=== PATIENT | female | born 1950 | race Asian ===

== ENCOUNTER 2016-08-01 14:01 | Observation (INO) | payer BC, MEDICARE, OTHER ==
--- NOTE | 2016-08-01 14:16 | ER Document Report ---
ED Medical Screen (RME) - General Stated Complaint: BLURRED VISSION Mode of Arrival: Wheelchair Information source: Patient Notes: Patient reports episode of blurred vision that started few hours ago while she was at work. Patient reports not feeling well. Patient denies any pain. Patient is feeling off balance. No motor deficits. hx: Recent dental extraction I have greeted and performed a rapid initial assessment of this patient. A comprehensive ED assessment and evaluation of the patient, analysis of test results and completion of the medical decision making process will be conducted by additional ED providers. - Related Data Allergies/Adverse Reactions: No Known Allergies Allergy (Verified 08/01/16 14:11) Physical Exam - Neurological Cognition: Normal [place] Coma Scale Eye Opening: Spontaneous [place] Coma Scale Verbal: Oriented [place] Coma Scale Motor: Obeys Commands [place] Coma Scale Total: 15 Course - Re-evaluation Re-evalutation: 08/01/16 14:[address] Hassan who advises stroke evaluation
[2016-08-01 15:17] LABS: ABSOLUTE LYMPHOCYTES (AUTO) 1.2 10^3/uL (0.5-4.7); ABSOLUTE MONOCYTES (AUTO) 0.4 10^3/uL (0.1-1.4); ABSOLUTE NEUT (AUTO) 5.4 10^3/uL (1.7-8.2); BASOPHILS % (AUTO) 0.3 % (0-2); EOSINOPHILS % (AUTO) 0.5 % (0-6); HEMATOCRIT 43.8 % (36.0-47.0); HEMOGLOBIN 14.8 g/dL (12.0-15.5); HGB HCT DIFFERENCE 0.6; LYMPHOCYTES % (AUTO) 17.3 % (13-45); MEAN CORPUSCULAR HGB CONC 33.9 g/dL (32.0-36.0); MEAN CORPUSCULAR VOLUME 95 fl (80-97); MONOCYTES % (AUTO) 5.4 % (3-13); RED BLOOD COUNT 4.64 10^6/uL (3.72-5.28); RED CELL DISTRIBUTION WIDTH 12.8 % (11.5-14.0); SEGMENTED NEUTROPHILS % (AUTO) 76.5 % (42-78)
[2016-08-01 15:30] LABS: APPEARANCE,URINE CLEAR; BILIRUBIN,URINE NEGATIVE (NEGATIVE); GLUCOSE, URINE NEGATIVE (NEGATIVE); KETONES,URINE NEGATIVE (NEGATIVE); LEUKOCYTE ESTERASE,URINE NEGATIVE (NEGATIVE); NITRITE,URINE NEGATIVE (NEGATIVE); PROTEIN,URINE NEGATIVE (NEGATIVE); URINE SPECIFIC GRAVITY 1.005; UROBILINOGEN,URINE NEGATIVE mg/dL (<2.0)
[2016-08-01 15:31] LABS: PROTHROMBIN TIME 12.7 SEC (11.4-15.4)
[2016-08-01 15:32] LABS: PARTIAL THROMBOPLASTIN TIME 29.2 SEC (23.5-35.8)
[2016-08-01 15:37] LABS: ALANINE AMINOTRANSFERASE 27 U/L (9-52); ALBUMIN 4.1 g/dL (3.5-5.0); ALKALINE PHOSPHATASE 118 U/L (38-126); ANION GAP 10 (5-19); ASPARTATE AMINO TRANSFERASE 23 U/L (14-36); BILIRUBIN,TOTAL 0.4 mg/dL (0.2-1.3); BLOOD UREA NITROGEN 16 mg/dL (7-20); CARBON DIOXIDE 27 mmol/L (22-30); CHLORIDE 106 mmol/L (98-107); CREATINE KINASE 144 U/L (30-135); CREATININE RESULT 0.78 mg/dL (0.52-1.25); GLUCOSE 115 mg/dL (75-110); POTASSIUM 3.9 mmol/L (3.6-5.0); SODIUM 142.5 mmol/L (137-145); TOTAL PROTEIN 7.8 g/dL (6.3-8.2)
[2016-08-01 15:49] LABS: CREATINE KINASE MB 1.74 ng/mL (<4.55); TROPONIN I < 0.012 ng/mL
--- NOTE | 2016-08-01 16:04 | ER Document Report ---
[id number] 4d BLURRED VISSION Mode of Arrival: Wheelchair Notes: The patient is a 66-year-old female, unknown past medical history bc she has not seen a doctor in several years, presents with ataxia and blurry vision that began at 7 AM this morning. She has had this in the past and it resolved spontaneously. She said the symptoms are making her feel like she is about to fall and she feels like the room is spinning. She denies numbness, tingling, neck stiffness, fevers, focal weakness, pain, shortness of breath, back pain, head injury or blood thinner use. TRAVEL OUTSIDE OF THE [place] IN LAST 30 DAYS: No - Related Data Allergies/Adverse Reactions: No Known Allergies Allergy (Verified 08/01/16 14:11) Past Medical History - General Information source: Patient - Social History Smoking Status: Unknown if Ever Smoked Chew tobacco use (# tins/day): No Frequency of alcohol use: None Drug Abuse: None Family History: Reviewed & Not Pertinent Patient has suicidal ideation: No Patient has homicidal ideation: No Renal/ Medical History: Denies: Hx Peritoneal Dialysis Review of Systems - Review of Systems Notes: REVIEW OF SYSTEMS: CONSTITUTIONAL: -fevers, -chills EENT: +blurry vision, -eye pain, -difficulty swallowing, -nasal congestion CARDIOVASCULAR:-chest pain, -syncope. RESPIRATORY: -cough, -SOB GASTROINTESTINAL: -abdominal pain, - nausea, -vomiting, -diarrhea GENITOURINARY: -dysuria, -hematuria MUSCULOSKELETAL: -back pain, -neck pain SKIN: -rash or skin lesions. HEMATOLOGIC: -easy bruising or bleeding. LYMPHATIC: -swollen, enlarged glands. NEUROLOGICAL: +ataxia, +dizziness, -altered mental status or loss of consciousness, -headache PSYCHIATRIC: -anxiety, -depression. ALL OTHER SYSTEMS REVIEWED AND NEGATIVE. Physical Exam - Vital signs Vitals: Temp Pulse Resp BP Pulse Ox 97.5 F 84 14 180/74 H 97 08/01/16 14:09 08/01/16 14:09 08/01/16 14:09 08/01/16 14:09 08/01/16 14:09 - Notes Notes: PHYSICAL EXAMINATION: GENERAL: Well-appearing, well-nourished and in no acute distress. HEAD: Atraumatic, normocephalic. EYES: Pupils equal round and reactive to light, extraocular movements intact, sclera anicteric, conjunctiva are normal. ENT: No nystagmus. nares patent, oropharynx clear without exudates. Moist mucous membranes. NECK: Normal range of motion, supple without lymphadenopathy LUNGS: Breath sounds clear to auscultation bilaterally and equal. No wheezes rales or rhonchi. HEART: Regular rate and rhythm without murmurs ABDOMEN: Soft, nontender, normoactive bowel sounds. No guarding, no rebound. No masses appreciated. EXTREMITIES: Normal range of motion, no pitting or edema. No cyanosis. NEUROLOGICAL: +Romberg's test, left-sided past-pointing, Cranial nerves grossly intact. Normal speech. Normal sensory, motor, and reflex exams. PSYCH: Normal mood, normal affect. SKIN: Warm, Dry, normal turgor, no rashes or lesions noted. Course - Re-evaluation Re-evalutation: Symptoms may be related to BPPV, but she does have several posterior cerebellar symptoms, including ataxia, positive Romberg's test, past pointing and abnormal eye skew deviation. Patient is not a TPA candidate due to 7 hours of symptoms. ABCD2 score 4. CT head does not show any acute bleeds and labs are unremarkable. Blood pressure 180/80, which is most likely long-standing due to not seeing a doctor for several years. Patient requires admission for further evaluation and treatment. ASA given. 08/01/16 16:[address] Morrison and he has accepted the patient. - Vital Signs Vital signs: Temp Pulse Resp BP Pulse Ox 97.5 F 92 18 187/89 H 97 08/01/16 14:09 08/01/16 15:15 08/01/16 15:15 08/01/16 15:15 08/01/16 15:31 - Laboratory Result Diagrams: 08/01/16 14:56 08/01/16 14:56 Laboratory results interpreted by me: 08/01/16 14:56 Glucose 115 H Creatine Kinase 144 H - Diagnostic Test Radiology reviewed: Image reviewed, Reports reviewed Radiology results interpreted by me: CT Head: NAD. Critical Care Note - Critical Care Note Total time excluding time spent on procedures (mins): 35 ED [employer]/Exc Criteria - Date/Time patient last known well: Date/Time: 08/01/2016 07:00 - Inclusion Criteria: 1: Patient presented to ED within 3 hours of acute ischemic stroke symptom onset ? -: No 2: Did baseline CT exclude intracranial hemorrhage and/or other risk factors? -: Yes 3: Is the age of the patient 18 years of age or greater? -: Yes : If any of the above questions are answered "NO" then stop, patient is not a candidate for Alteplase, : If all of the above questions are answered "YES" then continue with Exclusion Criteria. - Exclusion Criteria: 1: Is there evidence of intracranial hemorrhage on baseline CT? 2: Is there suspicion of subarachnoid hemorrhage (even if CT negative)? 3: Is there a history of serious head trauma, recent previous stroke or SD within 3 months? 4: Does the patient have a clinical presentation consistent with SD or post-SD pericarditis? 5: Is there history of intracranial hemorrhage? 6: On repeated measurement is Systolic BP greater than 185mmHg or Diastolic BP greater that 110 mmHg and is aggressive treatment needed to reduce blood pressure to these limits (e.g. constant infusion of an anti-hypertensive)? 7: Did the patient awake with stroke symptoms? 8: Has the patient had a lumbar puncture or an arterial puncture at a non- compressile site within 7 days? 9: With in the last 14 days did the patient have surgery or major trauma? 10: Is the patient or less than 2 weeks? 11: Was there any active bleeding or acute trauma? 12: Does the patient have intracranial neoplasm, arteriovenous malformation or aneurysm? 13: Does the patient have abnormal glucose (less than 50 or greater than 400mg/ dl)? Record glucose in Comment. 14: Patient has rapidly improving symptoms at the time Alteplase is to be Administered. 15: Does the patient have any risks for bleeding, including but not limited to: a.: Current use of Coumadin with PT greater than 15 seconds or INR greater than 1.7. b.: Current use of Pradaxa (Dabigatran). c.: Heparin administereed within the past 48 hours and PTT elevated. d.: Platelet count less than 100,000/mm. e.: Major surgery or serious trauma within 14 days. f.: Gastrointestinal or gynecological urinary bleeding within 14 days. g.: Myocardial Infarction (SD) within 3 months. : If the answer to any of the above questions is "YES" then stop, the patient is not a candidate for Alteplase. : If the answer to all of the above questions is "NO" then the patient may be eligible for the Administration of Alteplase. : If the patient is noted to have seizure activity at onset of Stroke symptoms; Consult Neurologist for further evaluation. - The patient is: -: Included and is eligible to receive Alteplase. *Initiate bed placement at higher level of care* Reviewd risks & benefits of thrombolytic therapy: I have reviewed the risks and benefits of thrombolytic therapy with the patient and/or his/her family. -: Excluded and not eligible to receive Alteplase for the above exclusions. -: Excluded and not eligible to receive Alteplase for other reasons (specify in comments): - Diagnosis of TIA: -: Patient presented with transient symptoms that are now resolved and no other neurologic findings are currently present. List symptoms in comments. -: Patient is NOT a candidate for tPA. -: ____(put name in comment) has been consulted for admission and continued evaluation of risk factor assessment. ED NIH Stroke Scale - NIH Stroke Scale When completed:: Before Alteplase *: 1. NIH scale should be completed with appropriate accompanying assessment tools. *: 2. The NIH should reflect what the patient is capable of doing and should not be coached by the clinician. 1a. Level of Consciousness: 0=Alert;keenly responsive -: 1=Drowsy -: 2=Obtunded -: 3=Coma/unresponsive or reflex to noxious stimuli. 1a. Responses: 0 1b. Orientation Questions: a. What month is it? -: b. How old are you? -: 0=Answers both questions correctly. -: 1=Answers one question correctly or patient is intubated or has orotracheal trauma. -: 2=Answers neither question correctly. 1b. Responses: 0 1c. Response to commands: a. Open and close eyes? -: b. [place] Drier and release hand? -: Credit is given despite weakness. Demonstration of task is permitted. Substitute command if hands cannot be used. -: 0=Performs both tasks correctly -: 1=Performs one task correctly -: 2=Performs neither task correctly 1c. Responses: 0 2. Gaze: Establish eye contact and instruct patient to "Follow my finger" -: 0=Normal -: 1=Partial gaze palsy. Gaze is abnormal in one or both eyes, but where forced deviation or total gaze paresis is not present. -: 2=Forced deviation or total gaze paresis. 2. Responses: 0 3. Visual [place]: Sees fingers in all four quadrants. -: 0=No visual loss. -: 1=Partial hemianopsia. -: 2=Complete hemianopsia. -: 3=Bilateral hemianopsia (including Cortical blindness) 3. Responses: 0 4. Facial Movement: Instruct patient to: -: a. Show me your teeth -: b. Raise your eyebrows -: c. Close your eyes -: d. Smile -: 0=Normal symmetrical movement -: 1=Minor paralysis (flattened nasolabial fold, asymmetry on smiling). -: 2=Partial paralysis (total or near total paralysis of lower face). -: 3=Complete paralysis of upper and lower face 4. Responses: 0 5. Motor functions (left arm): Alternate sides and extend each arm with palms down (90 degrees if sitting or 45 degrees for supine). -: 0=No drift;limb holds for full 10 seconds. -: 1=Drift; limb holds but drifts down before full 10 seconds, but does not hit bed. -: 2=Some effort against gravity; limb cannot get to or maintain position. -: 3=No effort against gravity; limb falls. -: 4=No movement. -: UN=Amputation, joint fusion, explain in comments. 5. Responses (left arm): 0 5. Motor Functions (right arm): Alternate sides and extend each arm with palms down (90 degrees if sitting or 45 degrees for supine). -: 0=No drift;limb holds for full 10 seconds. -: 1=Drift; limb holds but drifts down before full 10 seconds, but does not hit bed. -: 2=Some effort against gravity; limb cannot get to or maintain position. -: 3=No effort against gravity; limb falls. -: 4=No movement. -: UN=Amputation, joint fusion, explain in comments. 5. Responses (right arm): 0 6. Motor Functions (left leg): With patient lying supine, alternate sides and extend each leg (30 degrees always while supine). -: 0=No drift, leg holds position for full 5 seconds -: 1=Drift; leg falls before full 5 seconds but does not hit bed. -: 2=Some effort against gravity, leg falls to bed but some effort against gravity. -: 3=No effort against gravity, leg falls to bed immediately. -: 4=No movement. -: UN=Amputation, joint fusion; explain in comments. 6. Responses (left leg): 0 6. Motor Functions (right leg): With patient lying supine, alternate sides and extend each leg (30 degrees always while supine). -: 0=No drift, leg holds position for full 5 seconds -: 1=Drift; leg falls before full 5 seconds but does not hit bed. -: 2=Some effort against gravity, leg falls to bed but some effort against gravity. -: 3=No effort against gravity, leg falls to bed immediately. -: 4=No movement. -: UN=Amputation, joint fusion; explain in comments. 6. Responses (right leg): 0 7. Limb Ataxia: With eyes open instruct patient to: -: a. "Touch your finger to your nose". -: b. "Touch your heel to your floyd" -: 0=Absent -: 1=Present in one limb. -: 2=Present in two limbs. -: UN=Amputation or joint fusion; explain in comments. 7. Responses: 1 7. If ataxia present choose as appropriate: Left arm, Left leg, Right leg 8. Sensory: Test sensation using pinprick or noxious stimuli. Test as many body parts as possible. -: 0=Normal;no sensory loss -: 1=Mile to moderate sensory loss (patient feels pin prick but is less sharp on affected side). -: 2=Severe or total sensory loss. 8. Responses: 0 9. Best Language: Instruct patient to: -: a. "Describe what you see in this picture." -: b. "Name the items in this picture." -: c. "Read these sentences." -: 0=No aphasia, normal -: 1=Mild to moderate aphasia. -: 2=Severe aphasia -: 3=[place], global aphasia, no usable speech or auditory comprehension. 9. Responses: 0 10. Articulation, Dysarthia: Instruct patient to: -: "Read these words" or "Repeat these words" -: 0=Normal -: 1=Mild to moderate; patient may slur some words but can be understood without difficulty. -: 2=Severe; patients speech so slurred as to be unintelligible in the absence of dysphasia. -: UN=Intubated or other physical barrier, explain in comments. 10. Responses: 0 11. Extinction or inattention: 0=No abnormality -: 1= Visual, tactile, auditory, spatial, or personal inattention or extinction to bilateral simulation in one or the sensory modalities. -: 2=Profound tyrese-inattention or tyrese-inattention to more than one modality; does not recognize own hand. 11. Responses: 0 Total Score: 1 Discharge - Discharge Clinical Impression: Ataxia Condition: Stable Disposition: ADMITTED INPATIENT Admitting Provider: Hospitalist - [facility] Admitted: Medical Floor
[2016-08-01] MEDS ORDERED: ASPIRIN 325 MG TABLET PO ONE (16:06)
[2016-08-01] MEDS ORDERED: MECLIZINE HCL 25 MG TABLET PO ONE (16:08)
[2016-08-01] MEDS ORDERED: ACETAMINOPHEN 325 MG TABLET PO PRN (16:47)
--- NOTE | 2016-08-01 17:15 | PDOC H&P ---
History of Present Illness History of Present Illness: CROW HOLGUIN is a 66 year old female who presents with vertigo. The patient reports that over the last 6 months she's had episodes of feeling dizzy when she stands up quickly or turns her head. This morning at 7 AM when she was at work she started having worsening vertigo and some blurred vision. She also felt very tremulous. Patient presented emergency room and there were concerned this may represent a TIA. The patient has not had any loss of vision but has had blurred vision. She denies any double vision. She denies any loss of consciousness. She denies any focal weakness. Denies any paresthesias or numbness in her arms or legs. She denies any dysarthria or dysphagia. Past Medical History Cardiac Medical History: Reports: None Pulmonary Medical History: Reports: None EENT Medical History: Reports: None Neurological Medical History: Reports: None Endocrine Medical History: Reports: None Renal/ Medical History: Reports: None Malignancy Medical History: Reports: None GI Medical History: Reports: None Musculoskeltal Medical History: Reports: None Skin Medical History: Reports: None Traumatic Medical History: Reports: None Hematology: Reports: None Infectious Medical History: Reports: None Past Surgical History Past Surgical History: Reports: None Social History Information Source: Patient Lives with: Family Smoking Status: Never Smoker Frequency of Alcohol Use: Occasional Hx Recreational Drug Use: No Drugs: None - Advance Directive Resuscitation Status: Full Code Family History Family History: Mother in her 70s from unknown health history. Father in his 50s from unknown causes. They were in [place] and patient was here when they . Parental Family History Reviewed: Yes Children Family History Reviewed: No Sibling(s) Family History Reviewed.: No Medication/Allergy Allergies/Adverse Reactions: No Known Allergies Allergy (Verified 08/01/16 14:11) Review of Systems Constitutional: ABSENT: chills, fever(s), headache(s), weight gain, weight loss Eyes: ABSENT: visual disturbances Ears: ABSENT: hearing changes Cardiovascular: ABSENT: chest pain, dyspnea on exertion, edema, orthropnea, palpitations Respiratory: ABSENT: cough, hemoptysis Gastrointestinal: ABSENT: abdominal pain, constipation, diarrhea, hematemesis, hematochezia, nausea, vomiting Genitourinary: ABSENT: dysuria, hematuria Musculoskeletal: ABSENT: joint swelling Integumentary: PRESENT: as per HPI Neurological: PRESENT: as per HPI Psychiatric: ABSENT: anxiety, depression Endocrine: ABSENT: cold intolerance, heat intolerance, polydipsia, polyuria Physical Exam Vital Signs: Temp Pulse Resp BP Pulse Ox 97.5 F 92 14 152/90 H 98 08/01/16 14:09 08/01/16 15:15 08/01/16 16:14 08/01/16 16:14 08/01/16 16:14 Intake & Output 07/31/16 08/01/16 08/02/16 06:59 06:59 06:59 Weight 61.235 kg General appearance: PRESENT: no acute distress, well-developed, well-nourished Head exam: PRESENT: atraumatic, normocephalic Eye exam: PRESENT: conjunctiva pink, EOMI, PERRLA. ABSENT: scleral icterus Ear exam: PRESENT: normal external ear exam Mouth exam: PRESENT: moist, tongue midline Neck exam: ABSENT: carotid bruit, JVD, lymphadenopathy, thyromegaly Respiratory exam: PRESENT: clear to auscultation marva. ABSENT: rales, rhonchi, wheezes Cardiovascular exam: PRESENT: RRR. ABSENT: diastolic murmur, rubs, systolic murmur GI/Abdominal exam: PRESENT: normal bowel sounds, soft. ABSENT: distended, guarding, mass, organolmegaly, rebound, tenderness Rectal exam: PRESENT: deferred Extremities exam: PRESENT: full ROM. ABSENT: calf tenderness, clubbing, pedal edema Neurological exam: PRESENT: alert, awake, oriented to person, oriented to place , oriented to time, oriented to situation, other - Patient has some nystagmus with lateral gaze bilaterally. Psychiatric exam: PRESENT: anxious Skin exam: PRESENT: dry, intact, warm. ABSENT: cyanosis, rash Results Laboratory Results: 08/01/16 14:56 08/01/16 14:56 08/01/16 08/01/16 08/01/16 14:56 14:56 14:56 WBC 7.0 RBC 4.64 Hgb 14.8 Hct 43.8 MCV 95 MCH 32.0 MCHC 33.9 RDW 12.8 Plt Count 207 Seg Neutrophils % 76.5 Lymphocytes % 17.3 Monocytes % 5.4 Eosinophils % 0.5 Basophils % 0.3 Absolute Neutrophils 5.4 Absolute Lymphocytes 1.2 Absolute Monocytes 0.4 Absolute Eosinophils 0.0 Absolute Basophils 0.0 Sodium 142.5 Potassium 3.9 Chloride 106 Carbon Dioxide 27 Anion Gap 10 BUN 16 Creatinine 0.78 Est GFR ( Amer) > 60 Est GFR (Non-Af Amer) > 60 Glucose 115 H Calcium 10.0 Total Bilirubin 0.4 AST 23 ALT 27 Alkaline Phosphatase 118 Total Protein 7.8 Albumin 4.1 Urine Color STRAW Urine Appearance CLEAR Urine pH 6.0 Ur Specific [place] 1.005 Urine Protein NEGATIVE Urine Glucose (UA) NEGATIVE Urine Ketones NEGATIVE Urine Blood NEGATIVE Urine Nitrite NEGATIVE Ur Leukocyte Esterase NEGATIVE Urine WBC (Auto) 0 08/01/16 08/01/16 14:56 14:56 Creatine Kinase 144 H CK-MB (CK-2) 1.74 Troponin I < 0.012 Impressions: Chest X-Ray 08/01/16 14:11 IMPRESSION: NO ACUTE RADIOGRAPHIC FINDING IN THE CHEST. Head CT 08/01/16 14:15 IMPRESSION: NORMAL BRAIN CT WITHOUT CONTRAST. Assessment & Plan - Diagnosis (1) Ataxia Is this a current diagnosis for this admission?: YesPlan: The patient has ataxia and there was concern this may represent a TIA. The patient has however had symptoms for the last 6 months with intermittent vertigo with rapid head problems. I suspect this most likely represents a labyrinthitis. Patient also was very anxious which is contributing to her symptoms. Will give Valium 5 mg 3 times a day and we'll go ahead and obtain an MRI and MRA of her head and neck to rule out any type of posterior circulation problems. Patient will be given an aspirin daily. - Time Time Spent: 50 to 70 Minutes - Plan Summary Plan Summary: Patient is made an observation admission as I anticipate his require less than a 2 midnight hospital stay.
[2016-08-01] MEDS ORDERED: DIAZEPAM 5 MG TABLET PO ONE (17:30)
--- NOTE | 2016-08-01 18:38 | EKG REPORT ---
SEVERITY:- NORMAL ECG - SINUS RHYTHM : Confirmed by: Alba Hernandez 01-Aug-2016 18:37:48
[2016-08-01] MEDS ORDERED: ATORVASTATIN CALCIUM 20 MG TABLET PO SCH (22:00)
[2016-08-01] MEDS: FAMOTIDINE 20 MG TABLET PO SCH (22:05)
[2016-08-01] MEDS: DIAZEPAM 5 MG TABLET PO SCH (22:06)
[2016-08-02] MEDS: DIAZEPAM 5 MG TABLET PO SCH (05:14)
[2016-08-02 07:17] LABS: CHOLESTEROL 189.51 mg/dL (0-200); Direct HDL 79 mg/dL (>40); TRIGLYCERIDES 74 mg/dL (<150)
[2016-08-02 07:28] LABS: DIRECT LDL 91 mg/dL (<100)
[2016-08-02] MEDS ORDERED: SERTRALINE HCL 50 MG TABLET PO SCH (10:00)
[2016-08-02] MEDS ORDERED: ASPIRIN 325 MG TABLET, ENT COATED PO SCH (10:00)
[2016-08-02] MEDS: FAMOTIDINE 20 MG TABLET PO SCH (11:24)
[2016-08-02 13:40] VITALS: BP 125/66
--- NOTE | 2016-08-02 17:14 | PDOC DISCHARGE SUMMARY ---
General - Admit/Disc Date/PCP Admission Date/Primary Care Provider: 08/01/16 16:47 Discharge Date: 08/02/16 - Discharge Diagnosis (1) Ataxia Is this a current diagnosis for this admission?: YesSummary: [place] to be most likely secondary to vestibulitis. Patient also has anxiety - Additional Information Resuscitation Status: Full Code Discharge Diet: Regular Discharge Activity: Activity As Tolerated, Balance Activity w/Rest Home Medications: Aspirin [Ecotrin 325 mg EC Tablet] 325 mg PO DAILY tabec 08/02/16 Diazepam [Valium 5 mg Tablet] 5 mg PO Q8 PRN #30 tablet 08/02/16 Sertraline HCl [Zoloft 50 mg Tablet] 50 mg PO DAILY #30 tablet 08/02/16 History of Present Illness History of Present Illness: CROW HOLGUIN is a 66 year old female who presents with vertigo. The patient reports that over the last 6 months she's had episodes of feeling dizzy when she stands up quickly or turns her head. This morning at 7 AM when she was at work she started having worsening vertigo and some blurred vision. She also felt very tremulous. Patient presented emergency room and there were concerned this may represent a TIA. The patient has not had any loss of vision but has had blurred vision. She denies any double vision. She denies any loss of consciousness. She denies any focal weakness. Denies any paresthesias or numbness in her arms or legs. She denies any dysarthria or dysphagia. Hospital Course Hospital Course: The patient was admitted with ataxia which was felt to most likely represent a vestibulitis. Patient had an MRI which was unremarkable and carotid Dopplers which were also normal. Patient was started on Valium 5 mg 3 times a day and she had complete resolution of her symptoms reported she felt dramatically better. Patient did admit then that she has been very anxious over the last 6 months. She is started on Zoloft. Physical Exam Vital Signs: Temp Pulse Resp BP Pulse Ox 97.3 F 70 17 125/66 97 08/02/16 15:11 08/02/16 15:11 08/02/16 15:11 08/02/16 15:11 08/02/16 15:11 Intake & Output 08/01/16 08/02/16 08/03/16 06:59 06:59 06:59 Intake Total 3 480 Balance 3 480 Weight 54.6 kg General appearance: PRESENT: no acute distress Eye exam: PRESENT: conjunctiva pink. ABSENT: scleral icterus Mouth exam: PRESENT: moist, tongue midline Neck exam: ABSENT: carotid bruit, JVD, lymphadenopathy, thyromegaly Respiratory exam: PRESENT: clear to auscultation marva. ABSENT: rales, rhonchi, wheezes Cardiovascular exam: PRESENT: RRR. ABSENT: diastolic murmur, rubs, systolic murmur GI/Abdominal exam: PRESENT: normal bowel sounds, soft. ABSENT: distended, guarding, mass, organolmegaly, rebound, tenderness Extremities exam: PRESENT: full ROM. ABSENT: calf tenderness, clubbing, pedal edema Neurological exam: PRESENT: alert, awake, oriented to person, oriented to place , oriented to time, oriented to situation, CN II-XII grossly intact. ABSENT: motor sensory deficit Psychiatric exam: PRESENT: appropriate affect Skin exam: PRESENT: dry, intact, warm. ABSENT: cyanosis, rash Results Laboratory Results: 08/02/16 06:37 Triglycerides 74 Cholesterol 189.51 LDL Cholesterol Direct 91 VLDL Cholesterol 15.0 HDL Cholesterol 79 Impressions: Chest X-Ray 08/01/16 14:11 IMPRESSION: NO ACUTE RADIOGRAPHIC FINDING IN THE CHEST. Head CT 08/01/16 14:15 IMPRESSION: NORMAL BRAIN CT WITHOUT CONTRAST. Head MRI 08/01/16 17:27 IMPRESSION: NORMAL MRI OF THE BRAIN WITHOUT INTRAVENOUS GADOLINIUM CONTRAST. Carotid Doppler Study 08/02/16 00:00 IMPRESSION: NO HEMODYNAMICALLY SIGNIFICANT STENOSIS. Qualifiers PATEINT BEING DISCHARGED WITH ANY OF THE FOLLOWING DIAGNOSIS?: No Plan Discharge Plan: Patient is discharged home and will follow up with primary care in the next 2 weeks. Time Spent: Less than 30 Minutes
== END 2016-08-02 15:55 | disposition home or self-care (01) ==
LOC: ER 14:01 → EH 16:47 → 3S 22:33
PROVIDERS: ADMIT Internal Medicine; ATTEND Internal Medicine
DX: R27.0 Ataxia, unspecified (principal); R42 Dizziness and giddiness
CPT/HCPCS: 93005; 99291; 36415 ×2; 82553; 82550; 85025; 85610; 85730; 80053; 81001; 84484; 80061; 93880; 70551; 71010; 70450; 93010; G0378 ×3; J3490 ×2

== ENCOUNTER 2016-08-21 17:40 | Emergency (ER) | payer BC, MEDICARE, OTHER ==
--- NOTE | 2016-08-21 18:07 | ER Document Report ---
ED Medical Screen (RME) - General Stated Complaint: WEAK Mode of Arrival: Wheelchair Information source: Patient, Relative - SON Notes: Patient presents to the emergency department with complaints of feeling weak trimmers violently shaking no strength can stand or walk. Patient reports she is incoherent at times. 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 Son reports patient was here 2 weeks ago with the same symptoms. She was diagnosed with vertigo and was prescribed Valium. Patient quit taking time because she said it didn't help her and because it knocked her out. Reports recent CT and MRI was normal. I have greeted and performed a rapid initial assessment of this patient. A comprehensive ED assessment and evaluation of the patient, analysis of test results and completion of the medical decision making process will be conducted by additional ED providers. TRAVEL OUTSIDE OF THE [place] IN LAST 30 DAYS: No - Related Data Allergies/Adverse Reactions: No Known Allergies Allergy (Verified 08/01/16 14:11) Past Medical History Renal/ Medical History: Denies: Hx Peritoneal Dialysis Physical Exam - Vital signs Vitals: Temp Pulse Resp BP Pulse Ox 98.2 F 84 14 143/74 H 96 08/21/16 17:51 08/21/16 17:51 08/21/16 17:51 08/21/16 17:51 08/21/16 17:51 Course - Vital Signs Vital signs: Temp Pulse Resp BP Pulse Ox 98.2 F 84 14 143/74 H 96 08/21/16 17:51 08/21/16 17:51 08/21/16 17:51 08/21/16 17:51 08/21/16 17:51
[2016-08-21 18:34] LABS: ABSOLUTE EOSINOPHILS # (AUTO) 0.1 10^3/uL (0.0-0.6); ABSOLUTE MONOCYTES (AUTO) 0.5 10^3/uL (0.1-1.4); ABSOLUTE NEUT (AUTO) 4.7 10^3/uL (1.7-8.2); APPEARANCE,URINE CLEAR; BASOPHILS % (AUTO) 0.5 % (0-2); BILIRUBIN,URINE NEGATIVE (NEGATIVE); EOSINOPHILS % (AUTO) 0.8 % (0-6); GLUCOSE, URINE NEGATIVE (NEGATIVE); HEMATOCRIT 41.9 % (36.0-47.0); HEMOGLOBIN 14.3 g/dL (12.0-15.5); KETONES,URINE NEGATIVE (NEGATIVE); LEUKOCYTE ESTERASE,URINE NEGATIVE (NEGATIVE); LYMPHOCYTES % (AUTO) 27.1 % (13-45); MEAN CORPUSCULAR HGB CONC 34.3 g/dL (32.0-36.0); MEAN CORPUSCULAR VOLUME 93 fl (80-97); MONOCYTES % (AUTO) 6.9 % (3-13); NITRITE,URINE NEGATIVE (NEGATIVE); PROTEIN,URINE NEGATIVE (NEGATIVE); RED BLOOD COUNT 4.49 10^6/uL (3.72-5.28); RED CELL DISTRIBUTION WIDTH 12.4 % (11.5-14.0); SEGMENTED NEUTROPHILS % (AUTO) 64.7 % (42-78); URINE SPECIFIC GRAVITY 1.004; UROBILINOGEN,URINE NEGATIVE mg/dL (<2.0); WHITE BLOOD COUNT 7.3 10^3/uL (4.0-10.5)
[2016-08-21 18:50] LABS: ALANINE AMINOTRANSFERASE 31 U/L (9-52); ALBUMIN 4.5 g/dL (3.5-5.0); ALKALINE PHOSPHATASE 102 U/L (38-126); ANION GAP 12 (5-19); ASPARTATE AMINO TRANSFERASE 25 U/L (14-36); BILIRUBIN,TOTAL 0.6 mg/dL (0.2-1.3); BLOOD UREA NITROGEN 11 mg/dL (7-20); CALCIUM 9.7 mg/dL (8.4-10.2); CARBON DIOXIDE 27 mmol/L (22-30); CHLORIDE 106 mmol/L (98-107); GLUCOSE 116 mg/dL (75-110); POTASSIUM 3.9 mmol/L (3.6-5.0); SODIUM 144.5 mmol/L (137-145); TOTAL PROTEIN 7.7 g/dL (6.3-8.2)
--- NOTE | 2016-08-21 22:40 | ER Document Report ---
ED General - General Chief Complaint: Weakness Stated Complaint: WEAK Mode of Arrival: Wheelchair Notes: Patient is a 66-year-old female presents to the ER because of complaints of feeling very weak, shaking, having difficulty walking. Patient was recently discharged hospital May 26 after having similar symptoms. They thought this is related to vertigo and anxiety. She is placed on Zoloft as well as Valium. She's been taking his medications but says her symptoms have continued to gradually worsen. At that time she had stroke up including MRI and carotid Dopplers. No recent fevers or infections. No other complaints at this time. She denies recent trauma or injuries. The symptoms have been ongoing for over 6 months. She has not followed up with her primary care doctor. She says when she called the office she was told that they are not taking new patients. TRAVEL OUTSIDE OF THE [place] IN LAST 30 DAYS: No - Related Data Allergies/Adverse Reactions: No Known Allergies Allergy (Verified 08/01/16 14:11) Past Medical History - General Information source: Patient, Relative - SON - Social History Smoking Status: Never Smoker Frequency of alcohol use: None Drug Abuse: None Family History: Reviewed & Not Pertinent Renal/ Medical History: Denies: Hx Peritoneal Dialysis Review of Systems - Review of Systems Notes: My Normal Review Basic REVIEW OF SYSTEMS: CONSTITUTIONAL : Denies fever, chills, or sweats. Denies recent illness. EENT: Denies eye, ear, throat, or mouth pain or symptoms. Denies nasal or sinus congestion. CARDIOVASCULAR: Denies chest pain. RESPIRATORY: Denies cough, cold, or chest congestion. Denies shortness of breath, difficulty breathing, or wheezing. GASTROINTESTINAL: Denies abdominal pain. Denies nausea, vomiting, or diarrhea. Denies constipation. Last BM: GENITOURINARY: Denies difficulty urinating, painful urination, burning, frequency, or blood in urine. MUSCULOSKELETAL: Denies neck or back pain or joint pain or swelling. SKIN: Denies rash or skin lesions. NEUROLOGICAL: Difficulty ambulating. Weakness. PSYCHIATRIC: Denies anxiety or stress or depression. ALL OTHER SYSTEMS REVIEWED AND NEGATIVE. Physical Exam - Vital signs Vitals: Temp Pulse Resp BP Pulse Ox 98.2 F 84 14 143/74 H 96 08/21/16 17:51 08/21/16 17:51 08/21/16 17:51 08/21/16 17:51 08/21/16 17:51 - Notes Notes: General Appearance: Well nourished, alert, cooperative, no acute distress, no obvious discomfort. Vitals: reviewed, See vital signs table. Head: no swelling or tenderness to the head Eyes: PERRL, EOMI, Conjuctiva clear Mouth: No decreasd moisture Neck: Supple, no neck tenderness, No thyromegaly Lungs: No wheezing, No rales, No rhonci, No accessory muscle use, good air exchange bilaterally. Heart: Normal rate, Regular rythm, No murmur, no rub Abdomen: Normal BS, soft, No rigidity, No abdominal tenderness, No guarding, no rebound, no abdominal masses, no organomegaly Extremities: strength 5/5 in all extremities, good pulses in all extremities, no swelling or tenderness in the extremities, no edema. Skin: warm, dry, appropriate color, no rash Neuro: speech clear, oriented x 3, normal affect, responds appropriately to questions. Patient moves all 4 extremities on her own. No focal weakness. Patient does have some tremor when she stands up. She is able to walk, but seems hesitant to do so because she starts having a tremor when she stands to walk. Cranial nerves II through XII are intact. Course - Vital Signs Vital signs: Temp Pulse Resp BP Pulse Ox 98.0 F 68 18 135/67 H 96 08/22/16 02:34 08/22/16 02:34 08/22/16 02:34 08/22/16 02:34 08/22/16 02:34 - Laboratory Result Diagrams: 08/21/16 18:15 08/21/16 18:15 Laboratory results interpreted by me: 08/21/16 08/21/16 08/21/16 18:15 18:15 18:15 Glucose 116 H Creatine Kinase 178 H Salicylates < 1.0 L Acetaminophen < 10 L - EKG Interpretation by Me Additional EKG results interpreted by me: 08/21/16 22:57 EKG is reviewed and interpreted by me. EKG shows normal sinus rhythm with rate of [address] segment elevation or depression. No ischemic T wave inversions. NV interval, QRS duration, QTC intervals are within normal range. Old EKG for comparison is from 08/01/2016. - Transfer of Care Notes: 08/22/16 06:01 After all patient's results are back the son was in the room. The son was very helpful. I explained to him and his mother that I do not know what is causing her symptoms. The patient does seem very anxious and her symptoms to be consistent with anxiety however I informed them I cannot be completely sure that that is what is causing her symptoms. She has no true focal neurologic deficits. She's had an MRI recently. Should recent CT scan which was also negative. I did check a B-12 level and magnesium level. These are all negative. The remainder of her blood work is completely negative. I did talk to her and her son. I did offer admission being that I'm unclear the exact cause of what is going on. At this time they declined admission. They prefer outpatient referral to neurologist. I will give them referral to Dr. Lincoln. Encouraged him to return to ER if there is any worsening of her symptoms or she feels unwell. Dictation of this chart was performed using voice recognition software; therefore, there may be some unintended grammatical errors. 08/22/16 06:41 Discharge - Discharge Clinical Impression: Weakness, Dizziness Condition: Good Disposition: HOME, SELF-CARE Additional Instructions: Please stop taking the Valium and Zoloft. Please follow-up with Dr. Lincoln, neurologist, for further workup of your symptoms. Please return to the ER if you have any further concerns or feel worse. Please take the meclizine as needed up to 3 times a day for dizziness. Prescriptions: Meclizine HCl 25 mg PO TID PRN #20 tab.chew PRN Reason: dizziness Forms: Return to Work Referrals: DOLORES LINCOLN MD [ACTIVE STAFF] - Follow up in 3-5 days
[2016-08-21 22:50] LABS: MAGNESIUM 2.3 mg/dL (1.6-2.3)
[2016-08-21 23:18] LABS: TROPONIN I < 0.012 ng/mL
[2016-08-22 00:21] LABS: URINE BARBITURATES SCREEN NEGATIVE; URINE METHADONE SCREEN NEGATIVE; URINE OPIATES LOW NEGATIVE; URINE PHENCYCLIDINE SCREEN NEGATIVE
[2016-08-22 02:35] VITALS: BP 135/67
--- NOTE | 2016-08-22 10:51 | EKG REPORT ---
SEVERITY:- NORMAL ECG - SINUS RHYTHM : Confirmed by: Alba Hernandez 22-Aug-2016 10:50:23
== END 2016-08-22 02:33 | disposition home or self-care (01) ==
LOC: ER 17:40
DX: R53.1 Weakness (principal); R42 Dizziness and giddiness; R26.2 Difficulty in walking, not elsewhere classified; R25.1 Tremor, unspecified; Z79.899 Other long term (current) drug therapy
CPT/HCPCS: 36415; 80053; 80307; 81001; 82550; 82553; 82607; 82962; 83735; 84443; 84484; 85025; 93005; 93010; 99285

== ENCOUNTER 2017-08-13 09:05 | Emergency (ER) | payer BC, MEDICARE, OTHER ==
[2017-08-13 10:06] LABS: APPEARANCE,URINE CLEAR; BILIRUBIN,URINE NEGATIVE (NEGATIVE); COLOR,URINE STRAW; GLUCOSE, URINE NEGATIVE (NEGATIVE); KETONES,URINE NEGATIVE (NEGATIVE); LEUKOCYTE ESTERASE,URINE NEGATIVE (NEGATIVE); NITRITE,URINE NEGATIVE (NEGATIVE); PROTEIN,URINE NEGATIVE (NEGATIVE); URINE SPECIFIC GRAVITY 1.004; UROBILINOGEN,URINE NEGATIVE mg/dL (<2.0)
[2017-08-13 10:37] LABS: ABSOLUTE LYMPHOCYTES (AUTO) 1.3 10^3/uL (0.5-4.7); ABSOLUTE MONOCYTES (AUTO) 0.3 10^3/uL (0.1-1.4); ABSOLUTE NEUT (AUTO) 3.9 10^3/uL (1.7-8.2); BASOPHILS % (AUTO) 0.7 % (0-2); EOSINOPHILS % (AUTO) 0.7 % (0-6); HEMATOCRIT 43.3 % (36.0-47.0); HEMOGLOBIN 14.5 g/dL (12.0-15.5); MEAN CORPUSCULAR HEMOGLOBIN 31.5 pg (27.0-33.4); MEAN CORPUSCULAR HGB CONC 33.4 g/dL (32.0-36.0); MEAN CORPUSCULAR VOLUME 94 fl (80-97); MONOCYTES % (AUTO) 5.3 % (3-13); PLATELET COUNT 185 10^3/uL (150-450); RED BLOOD COUNT 4.59 10^6/uL (3.72-5.28); RED CELL DISTRIBUTION WIDTH 13.1 % (11.5-14.0); SEGMENTED NEUTROPHILS % (AUTO) 70.3 % (42-78); TOTAL CELLS COUNTED % (AUTO) 100 %; WHITE BLOOD COUNT 5.5 10^3/uL (4.0-10.5)
[2017-08-13 10:57] LABS: ALANINE AMINOTRANSFERASE 26 U/L (9-52); ALBUMIN 4.5 g/dL (3.5-5.0); ALKALINE PHOSPHATASE 86 U/L (38-126); ANION GAP 8 (5-19); ASPARTATE AMINO TRANSFERASE 20 U/L (14-36); BILIRUBIN,DIRECT 0.1 mg/dL (0.0-0.4); BILIRUBIN,TOTAL 0.4 mg/dL (0.2-1.3); BLOOD UREA NITROGEN 16 mg/dL (7-20); CALCIUM 9.7 mg/dL (8.4-10.2); CARBON DIOXIDE 29 mmol/L (22-30); CHLORIDE 106 mmol/L (98-107); GLUCOSE 98 mg/dL (75-110); SODIUM 143.1 mmol/L (137-145); TOTAL PROTEIN 7.2 g/dL (6.3-8.2)
[2017-08-13] MEDS ORDERED: LORAZEPAM INJ 2 MG/1 ML VIAL IV ONE (11:48)
[2017-08-13 12:29] LABS: CREATINE KINASE 83 U/L (30-135)
--- NOTE | 2017-08-13 14:18 | ER Document Report ---
ED General - General Chief Complaint: Tremor Stated Complaint: BLURRED VISION Time Seen by Provider: 08/13/17 09:42 Information source: Patient TRAVEL OUTSIDE OF THE [place] IN LAST 30 DAYS: No - HPI Patient complains to provider of: tremors/blurred vision Onset: Just prior to arrival Onset/Duration: Gradual Quality of pain: No pain Associated symptoms: Weakness - generalized Exacerbated by: Denies Relieved by: Denies Similar symptoms previously: Yes - 08/21/16 Recently seen / treated by doctor: No Notes: Patient states she went to work this morning. Her boss noticed that she was tremorous. She states she also felt weak all over. She was sent here for evaluation. Patient states that she had the same thing a year ago and it has gradually worsened. She states that she does take fluoxetine to baby aspirin a day. She states she does not smoke or drink. She does have a history of anxiety. 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 She states she did eat oatmeal and coffee this morning as she always does. States she had the same symptoms that started a year ago. She states she has had them on and off throughout the year however she does state that they are worsening. She has seen a neurologist and had a full workup. She states they have not found any reason for this. She states she does not wish to go back to her neurologist any longer. - Related Data Allergies/Adverse Reactions: No Known Allergies Allergy (Verified 08/13/17 09:06) Past Medical History - General Information source: Patient - Social History Smoking Status: Never Smoker Chew tobacco use (# tins/day): No Frequency of alcohol use: None Drug Abuse: None Lives with: Family Family History: Reviewed & Not Pertinent Patient has suicidal ideation: No Patient has homicidal ideation: Yes - Past Medical History Cardiac Medical History: Reports: None Pulmonary Medical History: Reports: None EENT Medical History: Reports: Eyes - Patient states she had blurry vision earlier but it resolved Neurological Medical History: Reports: None Endocrine Medical History: Reports: None Renal/ Medical History: Reports: None. Denies: Hx Peritoneal Dialysis Malignancy Medical History: Reports: None GI Medical History: Reports: None Musculoskeltal Medical History: Reports None Psychiatric Medical History: Reports: None Traumatic Medical History: Reports: None Infectious Medical History: Reports: None Past Surgical History: Reports: None Review of Systems - Review of Systems Constitutional: Weakness EENT: Blurred vision Cardiovascular: No symptoms reported Respiratory: No symptoms reported Gastrointestinal: No symptoms reported Genitourinary: No symptoms reported Female Genitourinary: No symptoms reported Musculoskeletal: No symptoms reported Skin: No symptoms reported Hematologic/Lymphatic: No symptoms reported Neurological/Psychological: See HPI Physical Exam - Vital signs Vitals: Temp Pulse Resp BP Pulse Ox 97.9 F 72 16 140/71 H 95 08/13/17 09:10 08/13/17 09:10 08/13/17 09:10 08/13/17 09:10 08/13/17 09:10 - Notes Notes: PHYSICAL EXAMINATION: GENERAL: Well-appearing, well-nourished and in no acute distress. Ears anxious. HEAD: Atraumatic, normocephalic. EYES: Pupils equal round and reactive to light, extraocular movements intact, conjunctiva are normal. No nystagmus. No scleral icterus. ENT: Nares patent, oropharynx clear without exudates. Moist mucous membranes. NECK: Normal range of motion, supple without lymphadenopathy LUNGS: Breath sounds clear to auscultation bilaterally and equal. No wheezes rales or rhonchi. HEART: Regular rate and rhythm without murmurs ABDOMEN: Soft, nontender, nondistended abdomen. No guarding, no rebound. No masses appreciated. Female : deferred Musculoskeletal: Normal range of motion, no pitting or edema. No cyanosis. Does have resting tremor bilateral upper extremities. NEUROLOGICAL: Cranial nerves grossly intact. Normal speech. Normal sensory. Patient demonstrates bilateral upper extremity weakness however when I moved her pocketbook away from her to went to fall she quickly grabbed it with both hands and pulled it towards her. Reflexes WNL upper and lower extremities. PSYCH: Normal mood, normal affect. SKIN: Warm, Dry, normal turgor, no rashes or lesions noted. - HEENT Visual acuity- Right eye: 20/40 Visual acuity- Left eye: 20/40 Visual acuity- Both eyes: 20/30 Corrective lenses worn: No - No other issues with test. PCt [place] Course - Re-evaluation Re-evalutation: 08/13/17 14:[address] scan head-now agreeable. She states she had neurology consult for same symptoms but nothing was discovered as the cause and she does not wish to see that neurologist again. i encouraged her and her friend who was present, to find another neurologist for follow up. 08/13/17 14:18 Labs- All tests 24 hr 08/13/17 08/13/17 08/13/17 09:40 10:23 10:23 WBC 5.5 RBC 4.59 Hgb 14.5 Hct 43.3 MCV 94 MCH 31.5 MCHC 33.4 RDW 13.1 Plt Count 185 Seg Neutrophils % 70.3 Lymphocytes % 23.0 Monocytes % 5.3 Eosinophils % 0.7 Basophils % 0.7 Absolute Neutrophils 3.9 Absolute Lymphocytes 1.3 Absolute Monocytes 0.3 Absolute Eosinophils 0.0 Absolute Basophils 0.0 Sodium 143.1 Potassium 4.0 Chloride 106 Carbon Dioxide 29 Anion Gap 8 BUN 16 Creatinine 0.72 Est GFR ( Amer) > 60 Est GFR (Non-Af Amer) > 60 Glucose 98 Calcium 9.7 Magnesium Total Bilirubin 0.4 Direct Bilirubin 0.1 Neonat Total Bilirubin Not Reportable Neonat Direct Bilirubin Not Reportable Neonat Indirect Bili Not Reportable AST 20 ALT 26 Alkaline Phosphatase 86 Creatine Kinase Total Protein 7.2 Albumin 4.5 TSH Urine Color STRAW Urine Appearance CLEAR Urine pH 8.0 Ur Specific [place] 1.004 Urine Protein NEGATIVE Urine Glucose (UA) NEGATIVE Urine Ketones NEGATIVE Urine Blood NEGATIVE Urine Nitrite NEGATIVE Urine Bilirubin NEGATIVE Urine Urobilinogen NEGATIVE Ur Leukocyte Esterase NEGATIVE Urine WBC (Auto) 0 Urine Bacteria (Auto) TRACE Squamous Epi Cells Auto <1 Urine Mucus (Auto) RARE Urine Ascorbic Acid NEGATIVE 08/13/17 08/13/17 10:23 10:23 WBC RBC Hgb Hct MCV MCH MCHC RDW Plt Count Seg Neutrophils % Lymphocytes % Monocytes % Eosinophils % Basophils % Absolute Neutrophils Absolute Lymphocytes Absolute Monocytes Absolute Eosinophils Absolute Basophils Sodium Potassium Chloride Carbon Dioxide Anion Gap BUN Creatinine Est GFR ( Amer) Est GFR (Non-Af Amer) Glucose Calcium Magnesium 2.3 Total Bilirubin Direct Bilirubin Neonat Total Bilirubin Neonat Direct Bilirubin Neonat Indirect Bili AST ALT Alkaline Phosphatase Creatine Kinase 83 Total Protein Albumin TSH 0.50 Urine Color Urine Appearance Urine pH Ur Specific [place] Urine Protein Urine Glucose (UA) Urine Ketones Urine Blood Urine Nitrite Urine Bilirubin Urine Urobilinogen Ur Leukocyte Esterase Urine WBC (Auto) Urine Bacteria (Auto) Squamous Epi Cells Auto Urine Mucus (Auto) Urine Ascorbic Acid 08/13/17 15:[address] 08/13/17 14:18 IMPRESSION: NORMAL BRAIN CT WITHOUT CONTRAST. EVIDENCE OF ACUTE STROKE: NO. - Vital Signs Vital signs: Temp Pulse Resp BP Pulse Ox 97.9 F 72 16 140/71 H 95 08/13/17 09:10 08/13/17 09:10 08/13/17 09:10 08/13/17 09:10 08/13/17 09:10 - Laboratory Result Diagrams: 08/13/17 10:23 08/13/17 10:23 Discharge - Discharge Clinical Impression: Occasional tremors Condition: Stable Disposition: HOME, SELF-CARE Instructions: Weakness ([facility], [facility]) Additional Instructions: Follow up with your physician tomorrow for further care or return to the ED IMMEDIATELY if symptoms worsen or new concerns occur. If you cannot afford to follow up with your primary care physician a list of low cost clinics have been provided at the end of your discharge papers as well. Referrals: NADEEN GRECO PA-C [Primary Care Provider] - Follow up tomorrow (Call office in a.m. for follow-up in the next few days.) CASSANDRA MAGALLANES MD [[facility]] - Follow up as needed RINA JOSEPH, GENERATOR TECHNICIAN [ALLIED HEALTH PROFESSIONAL] - Follow up as needed DOLORES LINCOLN MD [NO LOCAL MD] - Follow up as needed
--- NOTE | 2017-08-13 15:39 | RADIOLOGY REPORT (SQ) ---
EXAM DESCRIPTION: CT HEAD WITHOUT COMPLETED DATE/TIME: 08/13/2017 3:32 pm REASON FOR STUDY: weakness COMPARISON: None. TECHNIQUE: Axial images acquired through the brain without intravenous contrast. Images reviewed wi th bone, brain and subdural windows. Images stored on PACS. All CT scanners at this facility use dose modulation, iterative reconstruction, and/or weight based d osing when appropriate to reduce radiation dose to as low as reasonably achievable (ALARA). [facility]: Dose Right [facility]: CareDose [facility]: Dose Right [facility]: Teradose 4D [facility]: Bouncefootball RADIATION DOSE: CT Rad equipment meets quality standard of care and radiation dose reduction techniq ues were employed. CTDIvol: 49.0 mGy. DLP: 881 mGy-cm. mGy. LIMITATIONS: None. FINDINGS: VENTRICLES: Normal size and contour. CEREBRUM: No masses. No hemorrhage. No midline shift. No evidence for acute infarction. Normal gra y/white matter differentiation. No areas of low density in the white matter. CEREBELLUM: No masses. No hemorrhage. No alteration of density. No evidence for acute infarction. EXTRAAXIAL SPACES: No fluid collections. No masses. ORBITS AND GLOBE: No intra- or extraconal masses. Normal contour of globe without masses. CALVARIUM: No fracture. PARANASAL SINUSES: No fluid or mucosal thickening. SOFT TISSUES: No mass or hematoma. OTHER: No other significant finding. IMPRESSION: NORMAL BRAIN CT WITHOUT CONTRAST. EVIDENCE OF ACUTE STROKE: NO. COMMENT: Quality ID # [id number]: Final reports with documentation of one or more dose reduction techniques (e.g., Automated exposure control, adjustment of the mA and/or kV according to patient size, use of iterative reconstruction technique) TECHNICAL DOCUMENTATION: JOB ID: [id number] [employer]- All Rights Reserved Reading location - IP/workstation name: [email or web address]
[2017-08-13 16:45] VITALS: BP 145/72
== END 2017-08-13 16:44 | disposition home or self-care (01) ==
LOC: ER 09:05
DX: G25.2 Other specified forms of tremor (principal); H53.8 Other visual disturbances; R53.1 Weakness
CPT/HCPCS: 99284; 96374; 36415; 82550; 83735; 84443; 85025; 80053; 81001; 70450; J2060

== ENCOUNTER 2020-01-29 14:05 | Emergency (ER) | payer BC, MEDICARE, OTHER ==
[2020-01-29 14:21] VITALS: BP 121/67
[2020-01-29] MEDS ORDERED: DIPH/PERTUSS(ACELL)/TETANUS VAC/PF 0.5 ML SYR (>=10YO) IM ONE (15:13)
[2020-01-29] MEDS ORDERED: CIPROFLOXACIN HCL 500 MG TABLET PO ONE (15:13)
--- NOTE | 2020-01-29 15:18 | ER Document Report ---
ED Foreign Body - General Chief Complaint: Foreign Body Stated Complaint: FISH HOOK IN FOOT - LEFT Time Seen by Provider: 01/29/20 15:12 Primary Care Provider: NADEEN GRECO PA-C [Primary Care Provider] - Follow up in 3-5 days Mode of Arrival: Ambulatory Notes: 69-year-old female presented to ED for fishhook to the top of her left foot. [place] felt something on her foot states she jerked her foot and noticed that fishhook hooked into the top of her foot. She states she does not know when her last tetanus shot was. Patient is alert oriented respirations regular nonlabored speaking in full sentences. She is with her friend who drove her. She states she does have a history of Parkinson's but no other medical history. REVIEW OF SYSTEMS: CONSTITUTIONAL : Denies fever, chills, or sweats. Denies recent illness. EENT: Denies eye, ear, throat, or mouth pain or symptoms. Denies nasal or sinus congestion. CARDIOVASCULAR: Denies chest pain. RESPIRATORY: Denies cough, cold, or chest congestion. Denies shortness of breath, difficulty breathing, or wheezing. GASTROINTESTINAL: Denies abdominal pain. Denies nausea, vomiting, or diarrhea. Denies constipation. Last BM: GENITOURINARY: Denies difficulty urinating, painful urination, burning, frequency, or blood in urine. FEMALE GENITOURINARY: Denies vaginal bleeding, abnormal or irregular periods. LMP: MUSCULOSKELETAL: Denies neck or back pain or joint pain or swelling. SKIN: [place] into the top of her foot HEMATOLOGIC : Denies easy bruising or bleeding. LYMPHATIC: Denies swollen, enlarged glands. NEUROLOGICAL: Denies altered mental status or loss of consciousness. Denies headache. Denies weakness or paralysis or loss of use of either side. Denies problems with gait or speech. Denies sensory or motor loss. PSYCHIATRIC: Denies anxiety or stress or depression. ALL OTHER SYSTEMS REVIEWED AND NEGATIVE. VITAL SIGNS: Within normal limits. GENERAL: No acute distress, non-toxic appearance. HEAD: Normal with no signs of head trauma. EYES: PERRLA, EOMI, conjunctiva normal, no discharge. EARS: Hearing grossly intact. NOSE: Normal. THROAT: Oropharynx is normal. NECK: Normal range of motion, no tenderness, supple, no lymphadenopathy, No adenopathy, no JVD. CHEST: Clear breath sounds bilaterally. No wheezes, rales, or rhonchi. CARDIAC: Regular rate and rhythm. S1 and S2, without murmurs, gallops, or rubs. VASCULAR: No Edema. Peripheral pulses normal and equal in all extremities. ABDOMEN: Normal and soft with no tenderness, no masses or pulsatile masses. GASTROINTESTINAL: Bowel sounds normal GENITOURINARY: Normal, No tenderness LYMPATHTIC: No lymphadenopathy noted. MUSCULOSKELETAL: Good range of motion of all major joints. Extremities without clubbing, cyanosis or edema. NEUROLOGICAL: Alert and oriented x 3. No focal sensory or strength deficits. Speech normal. Follows commands appropriately. PSYCHIATRIC: Normal Affect, judgement and mood. SKIN: Took removed from the top of her foot. She does have a small puncture wound that has been well irrigated. She will be discharged home on antibiotics. TRAVEL OUTSIDE OF THE [place] IN LAST 30 DAYS: No - Related Data Allergies/Adverse Reactions: No Known Allergies Allergy (Verified 08/13/17 09:06) Past Medical History - General Information source: Patient - Social History Smoking Status: Never Smoker Frequency of alcohol use: None Drug Abuse: None Lives with: Alone Family History: Reviewed & Not Pertinent - Past Medical History Cardiac Medical History: Reports: None Pulmonary Medical History: Reports: None EENT Medical History: Reports: None Neurological Medical History: Reports: Hx Parkinson's Disease Endocrine Medical History: Reports: None Renal/ Medical History: Reports: None Malignancy Medical History: Reports: None GI Medical History: Reports: None Musculoskeletal Medical History: Reports None Skin Medical History: Reports None Psychiatric Medical History: Reports: None Traumatic Medical History: Reports: None Infectious Medical History: Reports: None Surgical Hx: Negative Past Surgical History: Reports: None - Immunizations Immunizations up to date: Yes Hx Diphtheria, Pertussis, Tetanus Vaccination: Yes - 01/29/2020 Physical Exam - Vital signs Vitals: Temp Pulse Resp BP Pulse Ox 98.0 F 73 16 121/67 100 01/29/20 14:21 01/29/20 14:21 01/29/20 14:21 01/29/20 14:21 01/29/20 14:21 Course - Re-evaluation Re-evalutation: 01/29/20 15:23 Skin to the top of the left foot was cleaned well with surgical scrub. Area was anesthetized with 4 cc of 1% lidocaine. Hemostats were used to push the hook through the skin as the skin was already tented. Wire cutters were used to cut jose off of the hook and then the hook was removed. Patient tolerated procedure well. Patient was treated with Cipro and tetanus immunization. Patient was discharged home with instructions for cleaning the wound soaking with Epsom salt applying bacitracin and using Cipro for the next 10 days. Patient verbalized understanding and agreement with treatment plan and patient was discharged home to follow-up with her primary care in the next 3 to 5 days. - Vital Signs Vital signs: Temp Pulse Resp BP Pulse Ox 98.0 F 73 16 121/67 100 01/29/20 14:21 01/29/20 14:21 01/29/20 14:21 01/29/20 14:21 01/29/20 14:21 Discharge - Discharge Clinical Impression: [place] in left foot top Condition: Stable Disposition: HOME, SELF-CARE Additional Instructions: You were seen today for fishhook in the top of your left foot. The fishhook has been removed. Ciprofloxacin You have been given an antibacterial agent, ciprofloxacin (Cipro). This medicine is not related to the penicillins, sulfas, cephalosporins, or tetracyclines. It is often given to patients who are allergic to these drugs. It has been chosen for you either because other drugs are not appropriate, or because of the nature of your problem. Cipro should not be taken with antacids, as these can decrease its effectiveness. It can be taken without regard to meals. CIPRO SHOULD NOT BE TAKEN BY CHILDREN, NURSING WOMEN, OR WOMEN. Although Cipro is usually well-tolerated, common side effects can include nausea and diarrhea. Contact your doctor if you experience any unusual symptoms while on this medication, such as joint pain or swelling, shortness of breath, wheezing, faintness, or hives. SOAP CLEANSING: Gently wash the wound daily using a mild soap (like Ivory, Phisoderm, Neutrogena). Use warm water, rubbing gently until all debris, ooze, and crusting have been washed from the wound. Allow to dry briefly (about 10 minutes) after cleaning. Repeat this cleansing at least three times a day for the first two days and then once or twice a day. ANTIBIOTIC OINTMENT PROTECTION: Your wounds are such that dressing them is not practical or optional. After cleansing, you should apply a thin coating of antibiotic ointment (Bacitracin, not Neosporin) to the wounds at least three times daily. This lessens infection risk, and may decrease the amount of scarring. Use a q-tip or dull butter knife, not your finger, to apply this ointment. Any debris or ooze which builds up in the ointment should be gently rubbed off with a sterile gauze pad. Harder crusting may need to be gently scrubbed off with a clean wash cloth with soap and warm water, perhaps applying a warm, wet wash cloth to the wound for ten minutes first. Development of redness, severe itching, or blistering may mean allergy to the ointment. See the doctor. TETANUS IMMUNIZATION GIVEN: You have been given an immunization against tetanus. Please record this in your records. In general, a booster is needed only once every 10 years. The tetanus shot protects against tetanus or "lockjaw," which is a complication of certain wound infections (the tetanus shot cannot protect against the actual infection). The immunization site may become warm and red due to local reaction. If this occurs, apply warm compresses and take aspirin or ibuprofen to reduce inflammation and discomfort. Return for evaluation if the reaction becomes severe. Epsom Salt Soaks Soak the wound area in a container of warm epsom salt water. If you can't get the wound area into a bucket or plaza, use a folded towel soaked in the epsom salt solution and apply to the area. Use clean hot tap water (about the temperature of a very warm bath), mixing in about one (1) teaspoon for every pint of water. Two gallon --> 16 teaspoons Epsom Salts One gallon --> 8 teaspoons Epsom Salts Two quarts --> 4 teaspoons Epsom Salts One quart --> 2 teaspoons Epsom Salts Soak the wound for about 20 minutes while gently moving it around in the water. Repeat this four (4) times a day. FOLLOW-UP CARE: Please return in ___3__ days for an infection check and dressing change. If you have been referred to another physician for follow-up care, call that physicians office for an appointment as you were instructed. If you experience a significant change in your laceration, or if you are concerned there may be an infection (swelling, redness, drainage, increasing tenderness, red streaks, tender lumps in the armpit or groin above the laceration, or fever), return to the Emergency Department immediately re-evaluation. Prescriptions: Ciprofloxacin HCl [Cipro 500 mg Tablet] 500 mg PO BID #10 tablet Referrals: NADEEN GRECO PA-C [Primary Care Provider] - Follow up in 3-5 days
== END 2020-01-29 15:30 | disposition home or self-care (01) ==
LOC: ER 14:05
DX: S91.342A Puncture wound with foreign body, left foot, initial encounter (principal); W45.8XXA Other foreign body or object entering through skin, initial encounter; Y93.01 Activity, walking, marching and hiking; Y92.832 Beach as the place of occurrence of the external cause; Z23 Encounter for immunization; G20 Parkinson's disease
CPT/HCPCS: 90471; 90715; 99283